=== PATIENT | male | born 1995 ===

== ENCOUNTER 2021-10-26 13:47 | Emergency (ER) ==
[~2021-10-26] VITALS: Ht 177.8 cm; Wt 63.6 kg
[2021-10-26 14:47] LABS: HEMATOCRIT 41.3 % (42.0-52.0); MEAN CELL VOLUME 89 fl (80.0-100.0); MEAN CORPUSCULAR HEMOGLOBIN 30 pg (27.0-31.0); MEAN CORPUSCULAR HGB CONC 34 g/dl (33.0-37.0); MEAN PLATELET VOLUME 10.8 fl (7.4-10.4); PLATELET COUNT 176 K/mm3 (130-400); RED BLOOD COUNT 4.66 M/mm3 (4.20-5.60); REDCELL DISTRIBUTION WIDTH-CV 11.6 % (11.5-14.5)
[2021-10-26 14:59] LABS: BILIRUBIN,TOTAL 1.3 mg/dL (0.2-1.2); POTASSIUM 3.1 mmol/L (3.5-4.5); TOTAL PROTEIN 6.2 gm/dL (6.2-8.1)
--- NOTE | 2021-10-26 15:31 | NUR ---
[employer] in [employer] Services; [employer] was called. [employer] Principal waited and watched patient being treated, tested, and prepared for transport to [facility]. Before he left [employer] Principal offered prayer for his safety and that he might be given strength and courage to face what is before him.
[2021-10-26 16:11] LABS: LYMPHOCYTE 39 % (20.0-51.0); NEUTROPHILS 54 % (42.0-75.2)
[2021-10-26 16:17] LABS: PLATELET ESTIMATE NORMAL (NORMAL)
== END 2021-10-26 16:17 | disposition short-term general hospital (02) ==
LOC: COL.ER 13:47 → EDBD 13:49 → COL.ER 13:49 → EDSEX 13:49 → COL.ER 16:17
PROVIDERS: Student in an Organized Health Care Education/Training Program
DX: S36.039A Unspecified laceration of spleen, initial encounter (principal); S27.0XXA Traumatic pneumothorax, initial encounter; S42.002A Fracture of unspecified part of left clavicle, initial encounter for closed fracture; Z20.822 Contact with and (suspected) exposure to COVID-19; V29.49XA Motorcycle driver injured in collision with other motor vehicles in traffic accident, initial encounter
CPT/HCPCS: J0692; J2250; J3010; J7030; J7040; P9016; Q9967